=== PATIENT | male | born 1965 | race Caucasian/White ===

== ENCOUNTER 2018-07-10 11:02 | Emergency (ER) | payer MEDICAID ==
[2018-07-10] MEDS: MUPIROCIN 2% 22 GM OINT TOP (12:05)
[2018-07-10] MEDS: IBUPROFEN 600 MG TAB PO (12:05)
== END 2018-07-10 12:56 | disposition home or self-care (01) ==
LOC: E/R 11:02
DX: L03.115 Cellulitis of right lower limb (principal); L02.415 Cutaneous abscess of right lower limb; E11.9 Type 2 diabetes mellitus without complications
CPT/HCPCS: 73590; 99283-25